=== PATIENT | female | born 1990 | race Hispanic/Latino ===

== ENCOUNTER 2020-03-13 14:22 | Outpatient (CLI) | payer OTHER ==
--- NOTE | 2020-03-13 16:05 | MMO ---
Bilateral MAMMO Bilat Screen [facility]. CLINICAL HISTORY: Patient is 29 years old and is seen for screening. The patient has the following family history of breast cancer: mother, at age 32. VIEWS: The views performed were: bilateral craniocaudal with tomosynthesis and bilateral mediolateral oblique with tomosynthesis. FILMS COMPARED: The present examination has been compared to a prior imaging study performed at [facility] on 03/13/2020. This study has been interpreted with the assistance of computer-aided detection. MAMMOGRAM FINDINGS: The breasts are heterogeneously dense, which could obscure a lesion on mammography. There is a mass measuring 11 millimeters with obscured margins seen in the right breast at 12 o'clock. Ultrasound showed solid mass, features suggestive of fibroadenoma. In the left breast, there are no suspicious masses, calcifications or areas of architectural distortion. 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 SIX MONTH FOLLOWUP US IS AN ALTERNATIVE. DISCUSSED WITH PATIENT WHO REQUESTED BIOPSY RATHER THAN FOLLOWUP. THE RESULTS OF THIS EXAM WERE SENT TO THE PATIENT. ACR BI-RADS Category 4 - Suspicious abnormality - biopsy should be considered MAMMOGRAPHY NOTE: 1. A negative mammogram report should not delay a biopsy if a dominant of clinically suspicious mass is present. 2. Approximately 10% to 15% of breast cancers are not detected by mammography. 3. Adenosis and dense breasts may obscure an underlying neoplasm. Reported by: JANNIE AMAYA MD Electonically Signed: [id number]
--- NOTE | 2020-03-13 16:28 | ULT ---
RIGHT BREAST ULTRASOUND: Date: 03/13/2020 HISTORY: Palpable right breast mass at 12 o'clock position, 4.0 cm from the nipple. FINDINGS: A well-circumscribed solid mass, approximately 9.0 x 16.0 mm in size, is seen corresponding to the pa lpable lesion. Its appearance is most typical of a fibroadenoma. This was discussed with the patient, with the suggestion of a follow-up ultrasound as an alternative to the biopsy. The patient requested a biopsy. This could be done as an ultrasound-guided procedure a s discussed with Dr. Bush. Dr. Bush is seeing the patient tomorrow and a final decision will be roberto hamilton at that time. IMPRESSION: 9.0 x 16.0 mm solid right breast nodule, as described above. POS: [facility]
== END 2020-03-13 14:23 | disposition home or self-care (01) ==
LOC: BICMAMMO 14:22
PROVIDERS: ATTEND Internal Medicine Hematology & Oncology
DX: Z12.31 Encounter for screening mammogram for malignant neoplasm of breast (principal); N63.41 Unspecified lump in right breast, subareolar; N63.11 Unspecified lump in the right breast, upper outer quadrant; Z80.3 Family history of malignant neoplasm of breast
CPT/HCPCS: 77063; 77067

== ENCOUNTER → 2020-03-23 | Day surgery (SDC) | payer OTHER ==
--- NOTE | 2020-03-23 11:46 | ULT ---
ULTRASOUND GUIDED RIGHT BREAST MASS BIOPSY: INDICATION: Right breast mass lesion in the 12:00 position 4 cm from the nipple. COMPARISON: Right breast diagnostic ultrasound and mammographic evaluation dated March 13, 2020. TECHNIQUE: Informed consent was obtained. Preprocedure ultrasound identified the suspicious mass in t he right breast 12:00 position 4 cm from the nipple. The site overlying the mass was sterilely prepped and draped in the usual fashion. Buffered 1% lidocaine was administered to the overlying subc utaneous tissues. A small dermatotomy was made. Under ultrasound guidance, a 14-gauge core biopsy needle was guided down to the lesion. Four separate core samples were obtained. After the fourth samp le, a biopsy clip was deployed in the mass. Pressure was held at the biopsy site until hemostasis was obtained. The patient tolerated the biopsy without difficulty. IMPRESSION: BI-RADS Category 4-suspicious abnormality. Status post ultrasound-guided core biopsy. Ricarda iting pathology results. Transcribed Date/Time: 03/23/2020 12:24 PM
--- NOTE | 2020-03-23 11:48 | MMO ---
FILMS COMPARED: The present examination has been compared to a prior imaging study performed at [place] [facility] on 03/13/2020. MAMMOGRAM FINDINGS: The breast is heterogeneously dense, which could obscure a lesion on mammography. There is an oval mass with associated biopsy clip seen in the middle region of the right breast at 12 o'clock. IMPRESSION: MASS IN THE RIGHT BREAST IS SUSPICIOUS. BIOPSY IS RECOMMENDED. ACR BI-RADS Category 4 - Suspicious abnormality - biopsy should be considered Reported by: MILES CHAHAL MD Electonically Signed: [id number]
== END ==
LOC: BICULT 10:39
PROVIDERS: ATTEND Internal Medicine Hematology & Oncology
PROC: 0H9T3ZX Drainage of Right Breast, Percutaneous Approach, Diagnostic (ICD-10-PCS; principal; 2020-03-23)
DX: N63.15 Unspecified lump in the right breast, overlapping quadrants (principal)
CPT/HCPCS: 19083; 88305

== ENCOUNTER 2021-11-12 10:10 | Outpatient (CLI) | payer OTHER | END 2021-11-12 10:11 | disposition home or self-care (01) | LOC: BICMAMMO 10:10 | PROVIDERS: ATTEND Internal Medicine Hematology & Oncology | DX: N64.4 Mastodynia (principal); N63.41 Unspecified lump in right breast, subareolar | CPT/HCPCS: 77066; G0279 ==